=== PATIENT | female | born 1970 ===

== ENCOUNTER 2022-02-24 10:51 | Day surgery (SDC) | payer MEDICAID ==
[~2022-02-24] VITALS: Ht 172.7 cm; Wt 121.0 kg
[2022-02-24] VITALS (21 sets, daily range): BP systolic 112–153; BP diastolic 34–77
--- NOTE | 2022-02-24 10:30 | NUR ---
Received patient in room 2007, being transported by [facility]. No report given from transport company, no report given from sending facility. Patient placed on monitor heart rate sinus rhythm in the 80's, sating 96% on 30% fio2 and a peep of 5 delivered by vent through patients trach. Patient has upper right arm picc that is saline locked. Small covered wounds to upper torso, and left thumb, patients camille area is excoriated with schafer in place. Upon assessment patient is flaccid on her right side but has movement to her left. Patient has foot drop braces in place bilaterally.
[2022-02-24] MEDS ORDERED: BUPIVAcaine/PF 2.5 mg/ml (0.25%) 30ml vial ONE (12:32)
[2022-02-24] MEDS ORDERED: clindamycin-Cleocin 900mg/D5W 50 ML IV ONE (13:00)
[2022-02-24 13:15] LABS: APTT 23 SECONDS (22-32)
[2022-02-24 13:17] LABS: ALANINE AMINOTRANSFERASE 37 U/L (12-78); ALBUMIN 2.3 G/DL (3.4-5.0); ALBUMIN/GLOBULIN RATIO 0.5 (1.1-1.5); ALKALINE PHOSPHATASE 105 IU/L (46-116); ANION GAP 7 (8-16); ASPARTATE AMINO TRANSFERASE 23 U/L (10-37); BILIRUBIN,TOTAL 0.5 MG/DL (0.1-1.0); BLOOD UREA NITROGEN 27 MG/DL (7-18); BUN/CREATININE RATIO 39.1 (6.6-38.0); CALCIUM 9.5 MG/DL (8.5-10.1); CHLORIDE 102 MMOL/L (99-107); CREATININE 0.69 MG/DL (0.40-0.90); GLUCOSE 92 MG/DL (70-104); POTASSIUM 3.8 MMOL/L (3.5-5.1); SODIUM 140 MMOL/L (135-145); TOTAL CARBON DIOXIDE 30.8 MMOL/L (24-32); TOTAL PROTEIN 7.2 G/DL (6.4-8.2); eGFR 90 ML/MIN
[2022-02-24 13:26] LABS: BASOPHILS # (AUTO) 0.1 X10'3 (0-0.2); EOSINOPHILS # (AUTO) 0.5 X10'3 (0-0.9); EOSINOPHILS % (AUTO) 5.6 % (0-6); LYMPHOCYTES # (AUTO) 1.8 X10'3 (1.1-4.8); LYMPHOCYTES % (AUTO) 18.8 % (21-51); MONOCYTES # (AUTO) 0.8 X10'3 (0-0.9); MONOCYTES % (AUTO) 8.1 % (2-12); NEUTROPHILS # (AUTO) 6.3 X10'3 (1.8-7.7); NEUTROPHILS % (AUTO) 66.5 % (42-75); PLATELET COUNT 370 X10'3 (140-440); WHITE BLOOD COUNT 9.4 X10'3 (4.5-11.0)
[2022-02-24 13:48] LABS: HEMATOCRIT 30.9 % (35.0-45.0); HEMOGLOBIN 9.6 g/dl (12.0-16.0); MEAN CORPUSCULAR HEMOGLOBIN 25.8 PG (27.0-31.0); MEAN CORPUSCULAR HGB CONC 31.2 g/dL (33.0-36.5); MEAN CORPUSCULAR VOLUME 82.6 FL (78-98); RED BLOOD COUNT 3.73 X10'6 (4.20-5.60); RED CELL DISTRIBUTION WIDTH 19.8 % (11.5-14.5)
[2022-02-24] MEDS ORDERED: sevoflurane 250ml liquid IH ONE (13:52)
[2022-02-24 14:10] LABS: ANISOCYTOSIS 2+; ELLIPTOCYTES 1+; HYPOCHROMASIA 1+; PLATELET ESTIMATE NORMAL; POLYCHROMASIA 1+; STOMATOCYTES FEW; TEAR DROP CELLS 1+
--- NOTE | 2022-02-24 14:10 | NUR ---
Patient off to OR accompanied, anesthesia, [employer] and tech
[2022-02-24] MEDS ORDERED: fentaNYL/PF 50MCG/1 ML 2ML syringe ONE (14:38)
[2022-02-24] MEDS ORDERED: rocuronium 10mg/ml inj IV ONE (15:25)
[2022-02-24] MEDS ORDERED: hydrocortisone sod succ/PF 100mg/2ml inj. ONE (15:25)
--- NOTE | 2022-02-24 16:41 | NUR ---
Patient back from OR, accompanied by Dr. Chavez and Monique RN, patient placed on vent fio2 80% peep of 5, vital signs stable, patient still sedated from OR. Patient received 1L of LR in O.R., originally scheduled to be laparoscopic turned open due to adhesions, small upper midline incision with 3 other laparoscopic insertion sites
[2022-02-24] MEDS ORDERED: dextrose 50%-water 50ml dispensing syringe IV PRN ×2 (17:45)
[2022-02-24] MEDS ORDERED: MESSAGE TO PHARMACY PO ONE (17:45)
[2022-02-24] MEDS ORDERED: glucagon, human recombinant 1mg kit SUBCUT PRN (17:45)
[2022-02-24] MEDS ORDERED: DEXTROSE 15 GM of carb/4 tabs (each vial/BOTTLE has 4 tablets) PO PRN ×2 (17:45)
[2022-02-24] MEDS ORDERED: insulin Lispro (HumaLOG) vial - multi-dose SQ SCH (17:45)
[2022-02-24] MEDS ORDERED: AMIO200T61 PO (17:55)
--- NOTE | 2022-02-24 18:17 | NUR ---
Problems reprioritized. Patient report given, questions answered & plan of care reviewed with Yakelin BURNHAM.
[2022-02-24 18:31] LABS: HEMOGLOBIN A1C 5.6 % (4.5-6.2)
[2022-02-24] MEDS ORDERED: insulin glargine (Lantus) pen - multi-dose SQ SCH (21:00)
[2022-02-25] VITALS (18 sets, daily range): BP systolic 116–146; BP diastolic 34–58
[2022-02-25 04:14] LABS: ABG BASE EXCESS 4.2 mmol/L (-2.0-2.0); ABG HCO3 28.1 mmol/L (22.0-26.0); ABG OXYGEN SATURATION 91.3 % (94-97); ABG PCO2 (T) 38.3 mmHg (32.0-45.0); ABG PO2 (T) 58.5 mmHg (75.0-100.0); ALLEN'S TEST POSITIVE; FCOHb 0.3 % (0.0-3.9); FMetHb 0.4 % (0.0-1.5); FO2Hb 90.7 % (94-97); PATIENT TEMPERATURE 36.4; PEEP 5 cm H2O; RESPIRATORY RATE 16 b/min; TIDAL VOLUME 450 mL; TOTAL HEMOGLOBIN 10.4 G/dl (12.0-16.0)
[2022-02-25] MEDS ORDERED: ringers solution, lacted 1,000 ML IV SCH (05:25)
--- NOTE | 2022-02-25 05:25 | NUR ---
Called and spoke with Dr Ramsey in regards to pt having minimal urine output but was no more orders for IV fluids and in the last hour pt only had 5ml out. New order given for LR at 80cc/hr. See order for details.
--- NOTE | 2022-02-25 06:28 | NUR ---
Patient in room CICU 2007. I have received report from Kameron and had the opportunity to ask questions and assume patient care. Drip and dressings noted. Pt resting in bed and in no acute distress at handoff.
--- NOTE | 2022-02-25 06:36 | NUR ---
2100 Father called for updates. He was not on the list so referred him to twin sister that is to give permission to speak with staff or for updates. He stated he would come to see her 02/25/22. 2348 Spoke with Thea from [employer]. She wanted to know if pt was coming back before the morning. Updated her that pt would be back on 02/25/22.
[2022-02-25] MEDS ORDERED: furosemide 20MG tablet PO SCH (10:50)
[2022-02-25] MEDS ORDERED: amiodarone 200mg tablet PO SCH (10:50)
--- NOTE | 2022-02-25 11:41 | NUR ---
Called patient report to Nayeli Dixon to Za BURNHAM; all questions answered. Per Dr. Stewart, transfer Addendum: 02/25/22 at 1146 by Kameron Chambers RN Per Dr. Stewart, transfer [place] with low-volume tube feedings riana.
--- NOTE | 2022-02-25 12:10 | NUR ---
Patient sent back to [facility] with [facility] and [facility] respiratory therapist; no belongings present.
== END 2022-02-25 12:15 ==
LOC: PAS 10:51 → CICU 2S 10:53 → EDSTATUS 13:00 → PAS 02-25 12:15
PROVIDERS: ATTEND Surgery
DX: R62.7 Adult failure to thrive (principal); J95.821 Acute postprocedural respiratory failure; I69.320 Aphasia following cerebral infarction; E66.01 Morbid (severe) obesity due to excess calories; M06.9 Rheumatoid arthritis, unspecified; M35.00 Sjogren syndrome, unspecified; I48.91 Unspecified atrial fibrillation; E11.9 Type 2 diabetes mellitus without complications; Z88.1 Allergy status to other antibiotic agents; Z88.0 Allergy status to penicillin; Z88.2 Allergy status to sulfonamides
CPT/HCPCS: 36415; 36600; 43830; 49329; 80053; 82803; 82948; 83036; 85018; 85025; 85610; 85730; 86885; 86900; 86901; 94002; 94003; 94760; A7521; J1720; J3010; J3490; J7030; J7120; Z7506; Z7508; 85008; A4215; A4618; A5200; A6250; A6402; A6449; A7000; B4087; G0378; J1815